=== PATIENT | male | born 1970 | race Caucasian/White ===

== ENCOUNTER 2023-01-05 09:13 | Day surgery (SDC) | payer BC ==
[~2023-01-05 09:13] MED LIST: Lactated Ringers 1,000 ML IV SCH; Propofol 200 MG/20 ML SDV ONE; fentaNYL 100 MCG/2 ML SDV ONE
[2023-01-05] MEDS ORDERED: Lidocaine 2% 5 ML SDV ONE (10:12)
[2023-01-05] MEDS ORDERED: Propofol 200 MG/20 ML SDV ONE ×2 (10:41→11:02)
== END 2023-01-05 11:48 | disposition home or self-care (01) ==
LOC: MW.SDS 09:13
PROVIDERS: ATTEND Surgery
DX: Z12.11 Encounter for screening for malignant neoplasm of colon (principal); N40.0 Benign prostatic hyperplasia without lower urinary tract symptoms; E11.9 Type 2 diabetes mellitus without complications; K21.9 Gastro-esophageal reflux disease without esophagitis; E78.00 Pure hypercholesterolemia, unspecified; K76.0 Fatty (change of) liver, not elsewhere classified; M19.90 Unspecified osteoarthritis, unspecified site; Z88.0 Allergy status to penicillin; Z79.899 Other long term (current) drug therapy; Z79.84 Long term (current) use of oral hypoglycemic drugs; Z98.890 Other specified postprocedural states
CPT/HCPCS: 45378; 82947; J2704; J3010; J7120; J3490